=== PATIENT | male | born 2000 | race Caucasian/White ===

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

== ENCOUNTER → 2023-12-06 | Outpatient (CLI) | payer BC ==
--- NOTE | 2023-12-06 15:02 | CT ---
EXAMINATION TYPE: CT soft tissue neck w con DATE OF EXAM: 12/06/2023 COMPARISON: None HISTORY: lt side mass CT DLP: 409.3 mGycm CONTRAST: CT scan of the neck is performed with IV Contrast, patient injected with 100 mL of Isovue 300. Contrast enhanced CT of the neck was performed from the skull base through the lung apices. AIRWAY: The supraglottic, glottic, and subglottic portions of the airway appear patent and free of mass. SALIVARY GLANDS: The submandibular and parotid glands are free of mass or inflammatory process. THYROID GLAND: No nodules or masses seen. LYMPH NODES: Internal jugular chain adenopathy measuring up to 1.2 cm on the left and 1.3 cm on the r ight. Posterior triangle adenopathy noted measuring up to 11 mm at the site of clinical concern. Righ t-sided posterior triangle lymph nodes measure up to 9 mm. There also appears submandibular lymph nod es identified measuring up to 9 mm. Submental lymph node noted measuring 8.5 mm. Posterior neck subcu taneous lymph node measuring 6 mm. LUNG APICES: No nodule or mass is seen. OTHER: Vascular structures are patent. No significant degenerative change of the cervical spine. N o abscess seen. IMPRESSION: 1. Adenopathy about the neck as discussed above which may be reactive in nature. Lymphoma is not excl uded. Correlate clinically and appropriate follow-up is advised.
== END | disposition home or self-care (01) ==
LOC: RADCTMAIN 14:16
PROVIDERS: ATTEND Internal Medicine
DX: R59.0 Localized enlarged lymph nodes (principal)
CPT/HCPCS: 70491; Q9967